=== PATIENT | female | born 1970 | race Caucasian/White ===

== ENCOUNTER 2020-07-30 06:09 | Day surgery (SDC) | payer OTHER, SELFPAY ==
[~2020-07-30] VITALS: Ht 165.1 cm; Wt 71.2 kg
[2020-07-30 06:20] LABS: HCG,QUAL RESULT NEGATIVE (NEGATIVE)
[2020-07-30] MEDS ORDERED: CEFAZOLIN SOD 2 GM in D5W 50 ML IV ONE (07:00)
[2020-07-30] MEDS ORDERED: ALPR0.5T PO (07:36)
[2020-07-30] MEDS ORDERED: LEVO112T2 PO (07:36)
[2020-07-30] MEDS ORDERED: MIDAZOLAM HCL 5 MG/5 ML VIAL IVP ONE (07:55)
[2020-07-30] MEDS ORDERED: LIDOCAINE/EPI 1% 1:100000 20 ML VIAL INJ ONE (07:55)
[2020-07-30] MEDS ORDERED: PROPOFOL 200MG/ 20ML VIAL (DIPRIVAN) IV ONE (07:55)
[2020-07-30] MEDS ORDERED: SEVOFLURANE 15 MIN GAS INH ONE (07:55)
[2020-07-30] MEDS ORDERED: DEXAMETHASONE SOD PHOSPHATE 4 MG/ML VIAL IVP ONE (07:55)
[2020-07-30] MEDS ORDERED: fentaNYL CITRATE/PF 100 MCG/2 ML AMP IVP ONE (07:55)
[2020-07-30] MEDS ORDERED: BACITRACIN ZINC 15 GM TOPICAL OINTMENT TP ONE (07:55)
[2020-07-30] MEDS ORDERED: NS IRRIG SOLN 1000 ML IR ONE (07:55)
[2020-07-30] MEDS ORDERED: LR 1,000 ML IV.SOLN IV ONE (07:55)
[2020-07-30] MEDS ORDERED: ONDANSETRON HCL 4 MG/2 ML VIAL IVP ONE (07:55)
[2020-07-30] MEDS ORDERED: GLYCOPYRROLATE 0.2 MG/ML VIAL IJ ONE (07:55)
[2020-07-30] MEDS ORDERED: ROCURONIUM BROMIDE 10 MG/ML (ZEMURON) IV ONE (07:55)
[2020-07-30] MEDS ORDERED: BUPIVACAINE /EPINEPHRINE/PF 0.25% 30 ML VIAL INJ ONE (07:55)
[2020-07-30] MEDS ORDERED: PHENYLEPHRINE HCL 10 MG/ML VIAL (NEOSYNEPHRINE) IV ONE (07:55)
[2020-07-30] MEDS ORDERED: ONDANSETRON HCL 4 MG/2 ML VIAL IVP PRN ×2 (09:00→13:00)
[2020-07-30] MEDS ORDERED: fentaNYL CITRATE/PF 100 MCG/2 ML AMP IVP PRN ×2 (09:00)
[2020-07-30] MEDS ORDERED: fentaNYL CITRATE/PF 100 MCG/2 ML AMP ONE (12:53)
[2020-07-30] MEDS ORDERED: HYDROcodone/ACETAMIN 5-325 MG TAB (NORCO/ VICODIN) PO PRN (13:00)
[2020-07-30 13:05] VITALS: BP_SYST 138
[2020-07-30] MEDS ORDERED: ONDANSETRON HCL 4 MG/2 ML VIAL ONE (13:39)
== END 2020-07-30 15:15 | disposition home or self-care (01) ==
LOC: SDS 06:09 → SMU 06:14 → EDSTATUS 07:30 → SDS 15:15
PROVIDERS: ATTEND Otolaryngology
DX: C73 Malignant neoplasm of thyroid gland (principal); F41.1 Generalized anxiety disorder; E06.3 Autoimmune thyroiditis; Z20.828 Contact with and (suspected) exposure to other viral communicable diseases; Z79.899 Other long term (current) drug therapy
CPT/HCPCS: 82948; 84703; 88307; C1782; J0690; J1100; J2250; J2370; J2405; J2704; J3010; J3490; J7060; J7120; U0003

== ENCOUNTER 2020-10-21 15:20 | Emergency (ER) | payer OTHER, SELFPAY ==
[~2020-10-21] VITALS: Ht 167.6 cm; Wt 70.8 kg
[~2020-10-21 15:20] MED LIST: ALPR0.5T PO; LEVO112T2 PO
[2020-10-21 15:23] VITALS: BP_SYST 182
--- NOTE | 2020-10-21 15:23 | NUR ---
Patient to ER bed 07 to gown for evaluation. Side rails up.
--- NOTE | 2020-10-21 16:06 | NUR ---
Patient brought in ambulatory sent from [place] [facility] for hyperkalemia of 12.2 and possible kidney failure. Patient reports having stomach flu over the weekend and generalized weakness x2 days. Patient has history of Karena's disease and thyroid cancer. Patient reports having a thyroidectomy in July 2020. Patient reports being Covid tested today at urgent care with negative results. Denies any pain, nausea, vomiting, diarrhea, or shortness of breath.
--- NOTE | 2020-10-21 16:13 | NUR ---
ER Dr. Patel at bedside examining patient.
--- NOTE | 2020-10-21 16:28 | NUR ---
EKG performed at BS by JENNY Irving. Physician given copy of EKG for review.
--- NOTE | 2020-10-21 16:31 | NUR ---
# 18 gauge angiocath placed to RAC. Use of asceptic technique. Opsite placed over site. Blood return noted. Blood for lab drawn from site. Flushed with 10 cc of normal saline. No evidence of infiltration noted. Patient tolerated well.
[2020-10-21] MEDS ORDERED: CA/D1TAB7 PO (16:39)
[2020-10-21] MEDS ORDERED: CALC0.258 PO (16:43)
[2020-10-21] MEDS ORDERED: FERR159T2 PO (16:43)
--- NOTE | 2020-10-21 16:43 | NUR ---
Medication reconciliation completed with information provided by Patient's , Louis. Any prior medication reconciliation on file was reviewed and corrected.
--- NOTE | 2020-10-21 16:43 | NUR ---
Patient states she is full code. Code status form placed in chart.
[2020-10-21] MEDS ORDERED: NACL 0.9% 1,000 ML IV ONE (16:45)
--- NOTE | 2020-10-21 16:50 | NUR ---
Medicated per MD orders. IVF infusing with no s/s of infiltration at this time. Will cont to monitor
[2020-10-21 16:51] LABS: BASOPHILS % (AUTO) 0.4 % (0.0-2.0); EOSINOPHILS % (AUTO) 0.5 % (0.0-4.0); HEMATOCRIT 31.4 % (36-48); HEMOGLOBIN 10.9 g/dL (12.0-16.0); LYMPHOCYTES # (AUTO) 1.2 K/uL (1.0-5.5); LYMPHOCYTES % (AUTO) 15.2 % (20.5-51.5); MEAN CORPUSCULAR HEMOGLOBIN 29 pg (27-31); MEAN CORPUSCULAR HGB CONC 35 % (32-36); MEAN CORPUSCULAR VOLUME 83 fL (79.0-98.0); MONOCYTES # (AUTO) 0.5 K/uL (0.0-1.0); MONOCYTES % (AUTO) 5.9 % (1.7-9.3); NEUTROPHILS # (AUTO) 6.2 K/uL (1.8-7.7); PLATELET COUNT (AUTO) 255 K/uL (130-430); RED BLOOD CELL COUNT(AUTO) 3.79 MIL/uL (4.2-6.2); RED CELL DISTRIBUTION WIDTH 13.6 % (9.0-15.0)
[2020-10-21 17:08] LABS: BILIRUBIN,URINE NEGATIVE (NEGATIVE); BLOOD, URINE 1+ (NEGATIVE); COLOR,URINE YELLOW (YELLOW); GLUCOSE,URINE NEGATIVE (NEGATIVE); KETONES,URINE 1+ (NEGATIVE); LEUKOCYTE ESTERASE ,URINE NEGATIVE (NEGATIVE); NITRITE, URINE NEGATIVE (NEGATIVE); PH,URINE 7.5 (5.0-8.0); PROTEIN URINE NEGATIVE (NEGATIVE); UROBILINOGEN,URINE 0.2 (0.2-1.0)
[2020-10-21 17:12] LABS: CLARITY/URINE SLIGHTLY HAZY (CLEAR)
[2020-10-21 17:16] LABS: CALCIUM 10.4 mg/dL (8.4-11.0); CREATININE 1.56 mg/dL (0.55-1.30); POTASSIUM 3.2 mmol/L (3.5-5.1)
[2020-10-21 17:20] LABS: BACTERIA,URINE FEW /HPF (None Seen)
[2020-10-21 17:21] LABS: MUCUS,URINE None Seen /LPF (None Seen); URINE AMORPHOUS PHOSPHATES 2+ /HPF (None Seen)
[2020-10-21 17:32] LABS: ALBUMIN 3.1 g/dL (3.4-4.8); TOTAL BILIRUBIN 0.5 mg/dL (0.0-1.0)
[2020-10-21 18:30] VITALS: BP_SYST 152
--- NOTE | 2020-10-21 18:30 | NUR ---
Patient given written and verbal discharge instructions and verbalizes understanding. ER MD discussed with patient the results and treatment provided. Patient in stable condition. ID arm band removed. IV catheter removed intact and dressing applied, no active bleeding. NO RX given. Patient educated on pain management and to follow up with PMD. Pain Scale 0/10 Opportunity for questions provided and answered.
== END 2020-10-21 18:30 | disposition home or self-care (01) ==
LOC: SED 15:20
DX: R79.9 Abnormal finding of blood chemistry, unspecified (principal); E07.9 Disorder of thyroid, unspecified; Z79.899 Other long term (current) drug therapy; Z91.018 Allergy to other foods; Z20.822 Contact with and (suspected) exposure to COVID-19
CPT/HCPCS: 36415; 71045; 81000; 80053; 83880; 84484; 85025; 87426; 93005; 96360; 99285; J7030

== ENCOUNTER 2020-10-25 22:57 | Emergency (ER) | payer OTHER, SELFPAY ==
[~2020-10-25] VITALS: Ht 165.1 cm; Wt 72.6 kg
[~2020-10-25 22:57] MED LIST changes: +CA/D1TAB7 PO; +CALC0.258 PO; +FERR159T2 PO
[2020-10-25 23:10] VITALS: BP_SYST 164
[2020-10-25 23:58] LABS: BASOPHILS # (AUTO) 0.1 K/uL (0.0-0.2); BASOPHILS % (AUTO) 0.6 % (0.0-2.0); EOSINOPHILS % (AUTO) 0.1 % (0.0-4.0); HEMATOCRIT 34.3 % (36-48); HEMOGLOBIN 11.5 g/dL (12.0-16.0); LYMPHOCYTES # (AUTO) 1.8 K/uL (1.0-5.5); LYMPHOCYTES % (AUTO) 20.6 % (20.5-51.5); MEAN CORPUSCULAR HEMOGLOBIN 28 pg (27-31); MEAN CORPUSCULAR HGB CONC 34 % (32-36); MEAN CORPUSCULAR VOLUME 84 fL (79.0-98.0); MONOCYTES # (AUTO) 0.4 K/uL (0.0-1.0); MONOCYTES % (AUTO) 4.9 % (1.7-9.3); NEUTROPHILS # (AUTO) 6.6 K/uL (1.8-7.7); NEUTROPHILS % (AUTO) 73.8 % (40.0-70.0); PLATELET COUNT (AUTO) 273 K/uL (130-430); WHITE BLOOD COUNT (AUTO) 8.9 K/uL (4.8-10.8)
[2020-10-26 00:11] LABS: CALCIUM 7.2 mg/dL (8.4-11.0); CREATININE 0.94 mg/dL (0.55-1.30)
[2020-10-26 00:16] LABS: ALBUMIN 3.7 g/dL (3.4-4.8); TOTAL BILIRUBIN 0.2 mg/dL (0.0-1.0)
[2020-10-26] MEDS ORDERED: CALCITRIOL 1 MCG/ML AMP IVP ONE (00:30)
[2020-10-26] MEDS ORDERED: calcitrioL 0.25 MCG CAPSULE PO SCH (00:45)
[2020-10-26 01:04] VITALS: BP_SYST 150
== END 2020-10-26 01:04 | disposition home or self-care (01) ==
LOC: SED 22:57
DX: E83.51 Hypocalcemia (principal); E07.9 Disorder of thyroid, unspecified; Z79.899 Other long term (current) drug therapy; Z91.018 Allergy to other foods
CPT/HCPCS: 36415; 80053; 83735-TC; 85025; 99283; J0636

== ENCOUNTER 2021-08-12 01:27 | Emergency (ER) | payer MEDICAID, OTHER ==
[2021-08-12 01:27] VITALS: BP_SYST 163
[2021-08-12 02:42] LABS: BASOPHILS % (AUTO) 0.4 % (0.0-2.0); EOSINOPHILS # (AUTO) 0.1 K/uL (0.0-0.4); EOSINOPHILS % (AUTO) 1.8 % (0.0-4.0); HEMOGLOBIN 11.2 g/dL (12.0-16.0); LYMPHOCYTES # (AUTO) 0.9 K/uL (1.0-5.5); LYMPHOCYTES % (AUTO) 17.9 % (20.5-51.5); MEAN CORPUSCULAR HEMOGLOBIN 28 pg (27-31); MEAN CORPUSCULAR HGB CONC 34 % (32-36); MEAN CORPUSCULAR VOLUME 81 fL (79.0-98.0); MONOCYTES # (AUTO) 0.4 K/uL (0.0-1.0); MONOCYTES % (AUTO) 8.5 % (1.7-9.3); NEUTROPHILS # (AUTO) 3.8 K/uL (1.8-7.7); NEUTROPHILS % (AUTO) 71.4 % (40.0-70.0); PLATELET COUNT (AUTO) 205 K/uL (130-430); RED BLOOD CELL COUNT(AUTO) 4.08 MIL/uL (4.2-6.2); RED CELL DISTRIBUTION WIDTH 15.6 % (9.0-15.0); WHITE BLOOD COUNT (AUTO) 5.3 K/uL (4.8-10.8)
[2021-08-12 02:56] LABS: ALBUMIN 3.4 g/dL (3.4-4.8); CALCIUM 8.5 mg/dL (8.4-11.0); CREATININE 1.02 mg/dL (0.55-1.30); TOTAL BILIRUBIN 0.5 mg/dL (0.0-1.0)
[2021-08-12 03:00] LABS: POTASSIUM 2.8 mmol/L (3.5-5.1)
[2021-08-12] MEDS ORDERED: VERAPAMIL HCL 120 MG TABLET.SA PO ONE (03:00)
[2021-08-12] MEDS ORDERED: POTASSIUM CHLORIDE 20 MEQ/PKT PACKET PO ONE (03:00)
[2021-08-12] MEDS ORDERED: methylPREDNISolone SOD SUCC 500 MG/VIAL (Solu-MEDROL) IV ONE (03:00)
[2021-08-12] MEDS ORDERED: POTASSIUM CHLORIDE 20 MEQ TAB.PRT.SR ONE (03:13)
[2021-08-12] MEDS: POTASSIUM CHLORIDE 20 MEQ TAB.PRT.SR PO ONE ×2 (03:18→03:29)
[2021-08-12 03:56] VITALS: BP_SYST 143
== END 2021-08-12 03:56 | disposition home or self-care (01) ==
LOC: SED 01:27
DX: R00.2 Palpitations (principal); E87.6 Hypokalemia; Z88.8 Allergy status to other drugs, medicaments and biological substances; Z79.899 Other long term (current) drug therapy
CPT/HCPCS: 36415; 80053; 85025; 93005; 99284

== ENCOUNTER 2021-10-27 21:23 | Emergency (ER) | payer MEDICAID ==
[~2021-10-27] VITALS: Ht 167.6 cm; Wt 74.8 kg
[2021-10-27 21:51] VITALS: BP_SYST 177
[2021-10-27] MEDS ORDERED: ASPIRIN 325 MG TABLET PO ONE (23:00)
[2021-10-27] MEDS ORDERED: NITROGLYCERIN 1 INCH (GM) OINT. TD ONE (23:00)
[2021-10-27 23:28] LABS: BASOPHILS % (AUTO) 0.6 % (0.0-2.0); EOSINOPHILS # (AUTO) 0.1 K/uL (0.0-0.4); EOSINOPHILS % (AUTO) 1.6 % (0.0-4.0); HEMATOCRIT 35.5 % (36-48); HEMOGLOBIN 12.1 g/dL (12.0-16.0); LYMPHOCYTES # (AUTO) 1.1 K/uL (1.0-5.5); LYMPHOCYTES % (AUTO) 19.9 % (20.5-51.5); MEAN CORPUSCULAR HEMOGLOBIN 28 pg (27-31); MEAN CORPUSCULAR HGB CONC 34 % (32-36); MEAN CORPUSCULAR VOLUME 83 fL (79.0-98.0); MONOCYTES # (AUTO) 0.4 K/uL (0.0-1.0); MONOCYTES % (AUTO) 7.1 % (1.7-9.3); NEUTROPHILS # (AUTO) 4.1 K/uL (1.8-7.7); NEUTROPHILS % (AUTO) 70.8 % (40.0-70.0); PLATELET COUNT (AUTO) 232 K/uL (130-430); RED BLOOD CELL COUNT(AUTO) 4.27 MIL/uL (4.2-6.2); RED CELL DISTRIBUTION WIDTH 12.9 % (9.0-15.0); WHITE BLOOD COUNT (AUTO) 5.8 K/uL (4.8-10.8)
[2021-10-27 23:39] LABS: CALCIUM 8.3 mg/dL (8.4-11.0); CREATININE 0.87 mg/dL (0.55-1.30); POTASSIUM 3.1 mmol/L (3.5-5.1)
[2021-10-27 23:51] LABS: ALBUMIN 3.7 g/dL (3.4-4.8); TOTAL BILIRUBIN 0.3 mg/dL (0.0-1.0)
[2021-10-28] MEDS ORDERED: POTASSIUM CHLORIDE 20 MEQ TAB.PRT.SR PO ONE (01:30)
[2021-10-28 01:52] VITALS: BP_SYST 139
[2021-10-28] MEDS ORDERED: CLON-315 PO ×2 (02:11→02:13)
== END 2021-10-28 01:52 | disposition home or self-care (01) ==
LOC: SED 21:23
DX: R07.89 Other chest pain (principal); I10 Essential (primary) hypertension; Z88.8 Allergy status to other drugs, medicaments and biological substances; Z79.899 Other long term (current) drug therapy
CPT/HCPCS: 36415; 71045; 80053; 84484; 85025; 93005; 99285